=== PATIENT | male | born 1960 | race Caucasian/White ===

== ENCOUNTER 2018-03-31 15:52 | Outpatient (CLI) | payer SELFPAY ==
[2018-03-31 16:05] LABS: Absolute Basophil Count 0.05 k/cumm (0.0-0.2); Absolute Eosinophil Count 0.05 k/cumm (0.0-0.7); Absolute Lymphocyte Count 0.79 k/cumm (1.2-3.4); Absolute Monocyte Count 0.44 k/cumm (0.11-0.7); Basophils % 1.2; Eosinophils % 1.2; HCT 42.4 % (40.0-50.0); Lymphocytes % 18.2; Mean Corp. HGB Concentration 35.4 g/dL (32.0-36.0); Mean Corpuscular Hemoglobin 33.7 pg (27.0-33.0); Mean Corpuscular Volume 95.3 fL (80-95); Monocytes % 10.2; Neutrophils % 69.2; Platelet Count 227 x1000/uL (130-400); RBC 4.45 m/cumm (4.50-6.00); RBC Distribution Width 12.9 % (11.8-14.1); White Blood Cell Count 4.33 k/cumm (4.4-10.8)
[2018-03-31 16:34] LABS: ALT 28 U/L (12-78); AST 14 U/L (15-37); Albumin 3.6 g/dL (3.4-5.0); Alkaline Phosphatase 77 U/L (46-116); Anion Gap 6.4 mmol/L (3-11); BUN 21 mg/dL (7-18); Bilirubin, Total 0.4 mg/dL (0.2-1.0); CO2 28.6 mmol/L (21.0-32.0); Calcium 8.9 mg/dL (8.5-10.1); Chloride 103 mmol/L (98-107); Glucose 346 mg/dL (70-100); Potassium 4.1 mmol/L (3.5-5.1); Sodium 138 mmol/L (136-145); TSH 0.92 uIU/mL (0.358-3.74); Total Protein 6.9 g/dL (6.4-8.2)
== END 2018-03-31 15:53 ==
PROVIDERS: PCP Physician Assistant; Visit Provider Nurse Practitioner Adult Health
DX: C09.9 Malignant neoplasm of tonsil, unspecified (principal)
CPT/HCPCS: 36415; 80053; 84443; 85025

== ENCOUNTER 2018-09-29 15:13 | Outpatient (CLI) | payer OTHER, SELFPAY ==
[2018-09-29 17:07] LABS: TSH 2.15 uIU/mL (0.358-3.74)
== END 2018-09-29 15:33 ==
PROVIDERS: PCP Physician Assistant; Visit Provider Nurse Practitioner Adult Health
DX: C09.9 Malignant neoplasm of tonsil, unspecified (principal)
CPT/HCPCS: 36415; 84443

== ENCOUNTER 2019-04-28 12:52 | Outpatient (CLI) | payer OTHER, SELFPAY ==
[2019-04-28 13:57] LABS: TSH 1.05 uIU/mL (0.36-3.74)
== END 2019-04-28 13:12 ==
PROVIDERS: PCP Physician Assistant; Visit Provider Nurse Practitioner Adult Health
DX: C09.9 Malignant neoplasm of tonsil, unspecified (principal); E11.9 Type 2 diabetes mellitus without complications
CPT/HCPCS: 36415; 84443